=== PATIENT | female | born 1985 | race Hispanic/Latino ===

== ENCOUNTER 2017-07-06 13:17 | Emergency (ER) | payer OTHER ==
[~2017-07-06 13:17] MED LIST: CALC500T13 PO; DOCU-116 PO; IBUP-2077 PO; PREN1TAB80 PO; TYL3 PO
[2017-07-06] MEDS ORDERED: ONDANSETRON ODT 4 MG TAB ONE (13:47)
[2017-07-06] MEDS ORDERED: MAG HYDROX/AL HYDROX/SIMETH ES 30 ML SUSP UDCUP ONE (13:47)
[2017-07-06] MEDS ORDERED: DICYCLOMINE HCL 10 MG/ML 2ML AMP IM ONE (13:47)
== END 2017-07-06 15:48 | disposition home or self-care (01) ==
LOC: EDH 13:17
DX: R11.2 Nausea with vomiting, unspecified (principal); R19.7 Diarrhea, unspecified
CPT/HCPCS: 96372; 99283; J0500

== ENCOUNTER 2018-04-30 19:22 | Emergency (ER) | payer BC, OTHER ==
[2018-04-30] MEDS ORDERED: IPRATROPIUM/ALBUTEROL SULFATE 3 ML SOLUTION IH ONE (20:34)
[2018-04-30] MEDS ORDERED: DEXAMETHASONE SOD PHOSPHATE 10MG/ML 1ML VIAL ONE (20:41)
== END 2018-04-30 20:54 | disposition home or self-care (01) ==
LOC: EDH 19:22
DX: J20.9 Acute bronchitis, unspecified (principal); Z90.49 Acquired absence of other specified parts of digestive tract; Z87.891 Personal history of nicotine dependence
CPT/HCPCS: 81025; 94640; 96372; 99284; J1100

== ENCOUNTER 2020-07-03 10:00 | Inpatient (IN) | payer MEDICAID ==
[~2020-07-03] VITALS: Ht 162.6 cm; Wt 109.8 kg
[2020-07-04 19:45] VITALS: BP 114/63
[2020-07-06] MEDS ORDERED: OXYTOCIN-LR 20 UNITS/1000 ML 1,000 ML IV SCH (07:30)
[2020-07-06] MEDS ORDERED: CEFAZOLIN SODIUM 1 GM VIAL IVP PRN (07:30)
[2020-07-06] MEDS ORDERED: CALDOLOR 800MG+NS 250ML 250 ML IV PRN (07:30)
[2020-07-06] MEDS ORDERED: LACTATED RINGERS 1000ML 1,000 ML IV SCH (07:30)
[2020-07-06 07:45] VITALS: BP 109/66
[2020-07-06 08:03] LABS: HEMATOCRIT 33.4 % (36-48); MEAN CORPUSCULAR HEMOGLOBIN 29.6 pg (27.0-33.0); MEAN CORPUSCULAR VOLUME 92.5 fL (79-99); RED BLOOD CELL COUNT(AUTO) 3.61 MIL/uL (4.00-5.50); RED CELL DISTRIBUTION WIDTH 14.6 % (11.0-15.5); WHITE BLOOD COUNT (AUTO) 8.2 K/uL (4.8-10.8)
[2020-07-06] MEDS ORDERED: CEFAZOLIN SODIUM 1 GM VIAL ONE (08:29)
[2020-07-06 08:57] LABS: APPEARANCE,URINE Clear (CLEAR); BILIRUBIN,URINE Negative (NEGATIVE); COLOR,URINE Yellow (YELLOW); GLUCOSE, URINE (UA) Negative (NEGATIVE); KETONES,URINE Negative (NEGATIVE); LEUKOCYTE ESTERASE ,URINE Moderate (NEGATIVE); NITRATE,URINE Negative (NEGATIVE); OCCULT BLOOD,URINE Trace (NEGATIVE); PROTEIN,URINE Trace mg/dL (NEGATIVE)
[2020-07-06] MEDS ORDERED: EPHEDRINE SULFATE 50 MG/ML AMPULE ONE (09:03)
[2020-07-06] MEDS ORDERED: ONDANSETRON 4MG INJ ONE ×2 (09:03→12:23)
[2020-07-06] MEDS ORDERED: PHENYLEPHRINE HCL 10 MG/ML 1ML VIAL IV ONE (09:03)
[2020-07-06] MEDS ORDERED: MORPHINE PF 100MG/10ML AMP IV ONE (09:03)
[2020-07-06] MEDS ORDERED: DEXAMETHASONE SOD PHOSPHATE 10MG/ML 1ML VIAL ONE (09:03)
[2020-07-06 09:06] LABS: BACTERIA,URINE Many /HPF (None Seen); SQUAMOUS EPITHELIAL CELL,UR Many /HPF (0-2)
[2020-07-06] MEDS ORDERED: CEFAZOLIN SODIUM 1 GM VIAL IVP ONE (09:08)
[2020-07-06] MEDS ORDERED: PROMETHAZINE HCL 25 MG/ML 1ML AMPULE IM PRN (09:15)
[2020-07-06] MEDS ORDERED: MEPERIDINE-PF 75 MG/ML SYG IM PRN (09:15)
[2020-07-06] MEDS ORDERED: DEXTROSE 5 %-0.45 % NACL 1,000 ML IV PRN (09:15)
[2020-07-06] MEDS ORDERED: OXYTOCIN-LR 20 UNITS/1000 ML 1,000 ML IV PRN (09:15)
[2020-07-06] MEDS ORDERED: 0.9%NACL 10ML VIAL IVP PRN (09:15)
[2020-07-06] MEDS ORDERED: OXYTOCIN 10 UNIT/1ML 10ML VIAL ONE (09:23)
[2020-07-06 12:10] VITALS: BP 123/70
[2020-07-06] MEDS: METOCLOPRAMIDE 10 MG/2 ML VIAL IVP PRN ×2 (13:20→18:53)
[2020-07-06 16:11] VITALS: BP 108/62
[2020-07-06] MEDS ORDERED: MV-M1TAB66 PO (18:48)
[2020-07-06] MEDS: CALDOLOR 800MG+NS 250ML 250 ML IV SCH (18:53)
[2020-07-06 19:45] VITALS: BP 105/65
[2020-07-06] MEDS ORDERED: DOCUSATE SODIUM 100 MG CAP PO SCH ×2 (21:00→21:45)
[2020-07-06 23:55] VITALS: BP 107/53
[2020-07-07] MEDS ORDERED: CALDOLOR 800MG+NS 250ML 250 ML IV ONE (02:58)
[2020-07-07] MEDS: CALDOLOR 800MG+NS 250ML 250 ML IV SCH (03:02)
[2020-07-07 03:07] LABS: HEPATITIS Bs ANTIGEN SCREEN P Negative (Negative)
[2020-07-07 03:10] VITALS: BP 107/53
[2020-07-07 06:33] LABS: HEMATOCRIT 29.3 % (36-48); MEAN CORPUSCULAR HEMOGLOBIN 29.4 pg (27.0-33.0); MEAN CORPUSCULAR HGB CONC 31.1 g/dL (32.0-36.0); MEAN CORPUSCULAR VOLUME 94.5 fL (79-99); RED BLOOD CELL COUNT(AUTO) 3.1 MIL/uL (4.00-5.50); RED CELL DISTRIBUTION WIDTH 14.8 % (11.0-15.5); WHITE BLOOD COUNT (AUTO) 10.1 K/uL (4.8-10.8)
[2020-07-07] MEDS ORDERED: CEFAZOLIN SODIUM 1 GM VIAL IVP PRN (07:30)
[2020-07-07 08:40] VITALS: BP 109/61
[2020-07-07] MEDS ORDERED: IBUPROFEN 800 MG TAB PO SCH (09:15)
[2020-07-07] MEDS ORDERED: ACETAMINOPHEN WITH CODEINE 1 TAB TAB PO PRN (09:45)
[2020-07-07] MEDS ORDERED: LANOLIN 30GM OINTMENT TP PRN (09:45)
[2020-07-07] MEDS ORDERED: ACETAMINOPHEN 500 MG TABLET PO PRN (09:45)
[2020-07-07] MEDS ORDERED: BISACODYL 10 MG SUPP.RECT RC PRN (09:45)
[2020-07-07] MEDS ORDERED: SIMETHICONE 80 MG TAB.CHEW PO PRN (09:45)
[2020-07-07 12:01] VITALS: BP 132/57
[2020-07-07] MEDS ORDERED: DOCUSATE SODIUM 100 MG CAP PO SCH (21:00)
== END 2020-07-07 13:15 | disposition home or self-care (01) | DRG 540 ==
LOC: LDH 07-06 07:09 → WSH 07-06 12:07
PROVIDERS: ADMIT Obstetrics & Gynecology; ATTEND Obstetrics & Gynecology
PROC: 10D00Z1 Extraction of Products of Conception, Low, Open Approach (ICD-10-PCS; 2020-07-06)
PROC: 0UB70ZZ Excision of Bilateral Fallopian Tubes, Open Approach (ICD-10-PCS; principal; 2020-07-06 07:30)
DX: O34.211 Maternal care for low transverse scar from previous cesarean delivery (principal); O99.214 Obesity complicating childbirth; O99.62 Diseases of the digestive system complicating childbirth; E66.01 Morbid (severe) obesity due to excess calories; Z30.2 Encounter for sterilization; Z37.0 Single live birth; Z3A.38 38 weeks gestation of pregnancy; N73.6 Female pelvic peritoneal adhesions (postinfective); Z20.822 Contact with and (suspected) exposure to COVID-19; O75.89 Other specified complications of labor and delivery
CPT/HCPCS: 36415; 59510; 81001; 85027; 86592; 86850; 86900; 86901; 87088; 87340; 88302; A4344; G0378; J0690; J1100; J1741; J2274; J2370; J2405; J2590; J2765; J3490; J7120; U0003

== ENCOUNTER 2020-11-08 15:51 | Emergency (ER) | payer MEDICAID ==
[~2020-11-08] VITALS: Ht 162.6 cm; Wt 108.9 kg
[~2020-11-08 15:51] MED LIST changes: -CALC500T13 PO
[2020-11-08 15:53] VITALS: BP 119/77
[2020-11-08 17:00] VITALS: BP 106/70
[2020-11-08] MEDS ORDERED: ORPHENADRINE CITRATE 30 MG/ML ML IM ONE (17:45)
[2020-11-08] MEDS ORDERED: LIDOCAINE 5% TOPICAL PATCH TP SCH (17:45)
[2020-11-08] MEDS ORDERED: KETOROLAC 30MG VIAL (30MG/ML) IM ONE (17:45)
[2020-11-08 18:23] LABS: APPEARANCE,URINE Clear (CLEAR); BILIRUBIN,URINE Negative (NEGATIVE); COLOR,URINE Yellow (YELLOW); GLUCOSE, URINE (UA) Negative (NEGATIVE); KETONES,URINE Trace mg/dL (NEGATIVE); LEUKOCYTE ESTERASE ,URINE Negative (NEGATIVE); NITRATE,URINE Negative (NEGATIVE); OCCULT BLOOD,URINE Negative (NEGATIVE); PH,URINE 5.5 (5.0-8.0); PROTEIN,URINE Negative (NEGATIVE)
[2020-11-08 18:33] LABS: BACTERIA,URINE Few /HPF (None Seen); MUCUS,URINE Few LPF (None Seen); SQUAMOUS EPITHELIAL CELL,UR Moderate /HPF (0-2)
[2020-11-08] MEDS ORDERED: ORPHENADRINE CITRATE 30 MG/ML ML ONE (19:03)
[2020-11-08] MEDS ORDERED: KETOROLAC 30MG VIAL (30MG/ML) ONE (19:03)
[2020-11-08] MEDS ORDERED: ORPH-43 PO (19:44)
[2020-11-08] MEDS ORDERED: IBUP-2070 PO (19:44)
[2020-11-08 19:54] VITALS: BP 111/69
== END 2020-11-08 20:00 | disposition home or self-care (01) ==
LOC: EDH 15:51
DX: S39.012A Strain of muscle, fascia and tendon of lower back, initial encounter (principal); R35.0 Frequency of micturition; R30.9 Painful micturition, unspecified; Z98.890 Other specified postprocedural states; W18.39XA Other fall on same level, initial encounter; Y93.89 Activity, other specified; Y92.89 Other specified places as the place of occurrence of the external cause; Y99.8 Other external cause status
CPT/HCPCS: 81001; 96372 ×2; 99284; J1885; J2360

== ENCOUNTER 2022-12-26 16:42 | Emergency (ER) | payer MEDICAID, OTHER ==
[~2022-12-26] VITALS: Ht 162.6 cm; Wt 104.3 kg
[~2022-12-26 16:42] MED LIST changes: +IBUP-2070 PO; +ORPH100T4 PO
[2022-12-26 16:44] VITALS: BP 133/88; PULSE 75; RESP 16
[2022-12-26] MEDS ORDERED: TETANUS/DIPHTHERIA TOXOID [ADULT] 0.5 ML VIAL IM ONE (18:00)
== END 2022-12-26 17:54 | disposition home or self-care (01) ==
LOC: EDH 16:42
DX: S61.213A Laceration without foreign body of left middle finger without damage to nail, initial encounter (principal); Z90.49 Acquired absence of other specified parts of digestive tract; Z79.899 Other long term (current) drug therapy; Z98.890 Other specified postprocedural states; X58.XXXA Exposure to other specified factors, initial encounter; Y93.89 Activity, other specified; Y92.89 Other specified places as the place of occurrence of the external cause; Y99.8 Other external cause status
CPT/HCPCS: 90471; 90714